=== PATIENT | male | born 1940 | race Caucasian/White ===

== ENCOUNTER 2016-12-20 15:42 | Emergency (ER) | payer OTHER, MEDICAID ==
[~2016-12-20] VITALS: Ht 172.7 cm; Wt 75.0 kg
[2016-12-20] MEDS ORDERED: TETANUS, DIPHTHERIA, PERTUSSIS VAC/PF 0.5ML (>7YR OLD) IM ONE (16:30)
[2016-12-20] MEDS ORDERED: MORPHINE SULFATE 4 MG/ML CPJ (NOT FOR IM USE) IV STA (16:57)
[2016-12-20] MEDS ORDERED: ONDANSETRON HCL 4MG/2ML VIAL IV STA (16:57)
[2016-12-20] MEDS ORDERED: BACITRACIN/POLYMYXIN B SULFATE OINT 15GM TOP ONE (18:30)
[2016-12-20] MEDS ORDERED: MORPHINE SULFATE 2 MG/ML CPJ (NOT FOR IM USE) IV ONE (18:30)
[2016-12-20] MEDS ORDERED: ONDANSETRON HCL 4MG/2ML VIAL IV ONE (20:00)
[2016-12-20 20:31] VITALS: BP 104/62
== END 2016-12-20 20:44 | disposition short-term general hospital (02) ==
LOC: ER 16:29
DX: S40.011A Contusion of right shoulder, initial encounter (principal); S50.01XA Contusion of right elbow, initial encounter; S60.221A Contusion of right hand, initial encounter; S40.812A Abrasion of left upper arm, initial encounter; S14.109A Unspecified injury at unspecified level of cervical spinal cord, initial encounter; S09.90XA Unspecified injury of head, initial encounter; S24.104A Unspecified injury at T11-T12 level of thoracic spinal cord, initial encounter; W10.0XXA Fall (on)(from) escalator, initial encounter; Y93.89 Activity, other specified; Y92.89 Other specified places as the place of occurrence of the external cause; Y99.8 Other external cause status
CPT/HCPCS: 70450; 72070; 72100; 72125; 72170; 73030; 73080; 73090; 73130; 90471; 90715; 96374; 96375; 96376; 99291; J2270; J2405